=== PATIENT | female | born 1950 | race African-American/Black ===

== ENCOUNTER 2017-07-13 07:10 | Inpatient (IN) ==
[2017-07-13] MEDS ORDERED: ASPIRIN 325 MG TABLET PO STA (07:38)
[2017-07-13] MEDS ORDERED: MORPHINE 4 MG/1 ML VIAL IV STA ×2 (07:38→09:07)
[2017-07-13] MEDS ORDERED: NITROGLYCERIN 2% OINT 1 INCH/GM PACK TOP STA (07:38)
[2017-07-13] MEDS ORDERED: ONDANSETRON 4 MG/2 ML VIAL IV STA (07:38)
[2017-07-13] MEDS ORDERED: MORPHINE 10 MG/1 ML VIAL ONE (07:53)
[2017-07-13] MEDS ORDERED: POTASSIUM CHLORIDE 20 MEQ TABLET PO PRN (08:29)
[2017-07-13] MEDS ORDERED: ONDANSETRON 4 MG/2 ML VIAL IV PRN (08:29)
[2017-07-13] MEDS ORDERED: MAGNESIUM HYDROXIDE SUSP 30 ML UDCUP PO PRN (08:29)
[2017-07-13] MEDS ORDERED: BISACODYL 5 MG TABLET PO PRN (08:29)
[2017-07-13] MEDS ORDERED: ZALEPLON 5 MG CAPSULE PO PRN (08:29)
[2017-07-13] MEDS ORDERED: MAGNESIUM SULF RIDER 2 GM in PREMIX 1 EACH IV PRN (08:29)
[2017-07-13] MEDS ORDERED: ACETAMINOPHEN 325 MG TABLET PO PRN (08:29)
[2017-07-13] MEDS ORDERED: DIAZEPAM 5 MG TABLET PO ONE (08:33)
[2017-07-13] MEDS ORDERED: diphenhydrAMINE CAP 25 MG CAPSULE PO ONE (08:33)
[2017-07-13] MEDS ORDERED: diphenhydrAMINE CAP 25 MG CAPSULE PO PRN (08:35)
[2017-07-13 08:38] LABS: PT Patient Result 10.4 SECS
[2017-07-13 08:52] LABS: Risk Ratio 3.65
[2017-07-13] MEDS ORDERED: SODIUM CHLORIDE 0.9% 1,000 ML IV SCH (09:00)
[2017-07-13] MEDS ORDERED: NON-FORMULARY MEDICATION (Cyanocobalamin (Vitamin B-12) [Vitamin B-12] 5,000 MCG) SL SCH (09:00)
[2017-07-13] MEDS ORDERED: NITROGLYCERIN DRIP 50 MG/250 ML BOTTLE IV ONE (11:44)
[2017-07-13] MEDS ORDERED: HEPARIN/NACL 0.9% 2 UNITS/ML 1,000 ML IV ONE (11:44)
[2017-07-13] MEDS ORDERED: fentaNYL 100 MCG/2 ML VIAL ONE (11:44)
[2017-07-13] MEDS ORDERED: MIDAZOLAM 2 MG/2 ML VIAL ONE (11:44)
[2017-07-13] MEDS ORDERED: VERAPAMIL 5 MG/2 ML VIAL ONE (11:44)
[2017-07-13] MEDS ORDERED: BIVALIRUDIN 250 MG VIAL IV ONE (12:16)
[2017-07-13] MEDS: BIVALIRUDIN 250 MG in SODIUM CHLORIDE 0.9% 50 ML IV SCH ×3 (12:20→18:27)
[2017-07-13] MEDS ORDERED: HEPARIN/NACL 0.9% 2 UNITS/ML 500 ML IV ONE (12:30)
[2017-07-13] MEDS ORDERED: TICAGRELOR 90 MG TABLET ONE (12:37)
[2017-07-13] MEDS: VITAMIN E 1000 UNIT CAPSULE PO SCH (14:10)
[2017-07-13] MEDS: PANTOPRAZOLE 40 MG TABLET PO SCH (14:10)
[2017-07-13] MEDS: ASPIRIN EC 81 MG TABLET PO SCH (14:10)
[2017-07-13] MEDS: LISINOPRIL 2.5 MG TABLET PO SCH (14:11)
[2017-07-13] MEDS: METOPROLOL TARTRATE 25 MG TABLET PO SCH ×2 (16:50→23:08)
[2017-07-13 20:48] LABS: CKMB % 11.1 %
[2017-07-13 20:49] LABS: Troponin I Only 68.8 NG/ML (0.00-0.045)
[2017-07-13] MEDS ORDERED: AMITRIPTYLINE 25 MG TABLET PO SCH (21:00)
[2017-07-13] MEDS ORDERED: ROSUVASTATIN 10 MG TABLET PO SCH ×2 (21:00)
[2017-07-13] MEDS: TICAGRELOR 90 MG TABLET PO SCH (23:08)
[2017-07-14] MEDS: BIVALIRUDIN 250 MG in SODIUM CHLORIDE 0.9% 50 ML IV SCH ×5 (03:15→05:47)
[2017-07-14 05:13] LABS: Basophils % 0.5 % (0.0-0.8); Eosinophils # 0.1 10*3/uL (0.0-0.87); Hematocrit 33.9 VOL% (35.7-47.0); Hemoglobin 11.6 GM/DL (12.0-16.0); Immature Granulocytes % 0.9 %; Immature Granulocytes Absolute 0.07 #; Lymphocytes # 1.9 10*3/uL (1.4-4.0); Lymphocytes % 25.4 % (21.3-54.2); Mean Corpuscular HGB Conc 34.2 GM/DL (32-36); Mean Corpuscular Hemoglobin 31 PG (27-34); Mean Corpuscular Volume 90.6 FL (87-102); Mean Platelet Volume 11.9 FL (9.6-12.0); Monocytes # 0.9 10*3/uL (0.11-0.8); Monocytes % 12.2 % (1.7-12.7); Neutrophils # 4.6 10*3/uL (1.4-7.4); Platelet Count 190 T/CUMM (130-400); Red Blood Count 3.74 MC/CUMM (3.8-5.5); White Blood Count 7.7 T/CUMM (4-12)
[2017-07-14 05:47] LABS: Calcium 8.8 MG/DL (8.5-10.1); Osmolality,Calculated 276.4 MOS/KG (273-304); Potassium 3.8 MMOL/L (3.5-5.1)
[2017-07-14] MEDS ORDERED: LEVOTHYROXINE 100 MCG TABLET PO SCH (06:30)
[2017-07-14 07:49] VITALS: BP 110/68
[2017-07-14] MEDS: ASPIRIN EC 81 MG TABLET PO SCH (09:13)
[2017-07-14] MEDS: METOPROLOL TARTRATE 25 MG TABLET PO SCH (09:13)
[2017-07-14] MEDS: TICAGRELOR 90 MG TABLET PO SCH (09:13)
[2017-07-14] MEDS: VITAMIN E 1000 UNIT CAPSULE PO SCH (09:13)
[2017-07-14] MEDS: PANTOPRAZOLE 40 MG TABLET PO SCH (09:13)
[2017-07-14] MEDS: LISINOPRIL 2.5 MG TABLET PO SCH (09:13)
[2017-07-14] MEDS ORDERED: CARVEDILOL 3.125 MG TABLET PO SCH (21:00)
== END 2017-07-14 11:11 | disposition home or self-care (01) | DRG 247 ==
LOC: N.ED 07:10 → N.EDINP 08:29 → N.TELES 13:35
PROVIDERS: ADMIT Internal Medicine Cardiovascular Disease; ATTEND Internal Medicine Cardiovascular Disease
PROC: CLCCHCL (ICD-10-PCS; 2017-07-13 10:45)